=== PATIENT | female | born 1970 | race African-American/Black ===

== ENCOUNTER 2020-05-03 16:07 | Emergency (ER) | payer MEDICAID, OTHER ==
[~2020-05-03] VITALS: Ht 172.7 cm; Wt 100.0 kg
[~2020-05-03 16:07] MED LIST: PRILOSEC; TRAM50TA3
[2020-05-03] MEDS ORDERED: TETANUS, DIPHTHERIA, PERTUSSIS VAC/PF 0.5ML (>7YR OLD) IM ONE (17:15)
[2020-05-03] MEDS ORDERED: CEPH500C2 MT (17:20)
[2020-05-03] MEDS ORDERED: CEPHALEXIN 250MG CAPSULE PO ONE (17:30)
[2020-05-03 18:19] VITALS: BP 142/87
== END 2020-05-03 18:24 | disposition home or self-care (01) ==
LOC: ER 16:07
DX: M70.22 Olecranon bursitis, left elbow (principal); I10 Essential (primary) hypertension; Z88.6 Allergy status to analgesic agent; Z88.8 Allergy status to other drugs, medicaments and biological substances; Z90.49 Acquired absence of other specified parts of digestive tract; Z98.890 Other specified postprocedural states
CPT/HCPCS: 90471; 90715; 99283; A4565

== ENCOUNTER 2022-05-11 18:54 | Emergency (ER) | payer MEDICAID ==
[~2022-05-11] VITALS: Ht 172.7 cm; Wt 106.0 kg
[~2022-05-11 18:54] MED LIST changes: +CEPH500C2 MT
[2022-05-11 19:12] VITALS: BP 160/70
== END 2022-05-12 02:29 | disposition left against medical advice (07) ==
LOC: ER 18:54
DX: R10.9 Unspecified abdominal pain (principal); Z53.21 Procedure and treatment not carried out due to patient leaving prior to being seen by health care provider
CPT/HCPCS: 99281

== ENCOUNTER 2022-09-25 15:41 | Emergency (ER) | payer MEDICAID ==
[~2022-09-25] VITALS: Ht 172.7 cm; Wt 117.2 kg
[2022-09-25 16:03] VITALS: O2SAT 99
[2022-09-25] MEDS ORDERED: ONDANSETRON 4MG ODT PO STA (17:26)
[2022-09-25] MEDS ORDERED: MAGNESIUM/ALUMINUM HYDROXIDE/SIMETHICONE 30ML UDC PO STA (17:26)
[2022-09-25] MEDS ORDERED: DICYCLOMINE HCL 10MG CAPSULE PO ONE (17:30)
[2022-09-25] MEDS ORDERED: POLYETHYLENE GLYCOL 3350 (17GM) 1 DOSE PACK PO ONE (17:30)
[2022-09-25 17:53] LABS: BASOPHILS % 0.7 % (0.0-2.0); DIFFERENTIAL COMMENT 0; HEMATOCRIT. 36.7 % (36.0-48.0); HEMOGLOBIN. 12.1 g/dL (12.0-16.0); LYMPHOCYTES % 23.5 % (20.0-50.0); MEAN CORPUSCULAR HEMOGLOBIN 30.2 pg (28.0-32.0); MEAN CORPUSCULAR HGB CONC 32.9 g/dL (31.0-37.0); MEAN CORPUSCULAR VOLUME 91.8 fL (81.0-99.0); MEAN PLATELET VOLUME 10.1 fl (7.4-10.4); NEUTROPHILS % 65.8 % (40.0-76.0); PLATELET 203 x1000/uL (130-400); RED CELL DISTRIBUTION WIDTH 13.3 % (11.6-14.6); WHITE BLOOD COUNT 8.1 x1000/uL (4.5-11.0)
[2022-09-25 18:04] LABS: CHLORIDE 107 mEq/L (98-107); INDEX HEMOLYSI 1 (1-3); INDEX ICTERIC 1 (1-4); INDEX LIPEMIC 1 (1-3); POTASSIUM 3.7 mEq/L (3.5-5.1); SODIUM 136 mEq/L (136-145)
[2022-09-25 18:09] LABS: HCG SCREEN NEGATIVE
[2022-09-25 18:11] LABS: ALANINE AMINOTRANSFERASE 18 IU/L (13-61); ALBUMIN 3.3 g/dL (3.4-5.0); ASPARTATE AMINOTRANSFERASE 10 IU/L (15-37); CALCIUM 8.7 mg/dL (8.5-10.1); CARBON DIOXIDE 26 mEq/L (21-32); CREATININE 0.6 mg/dL (0.6-1.3); GLUCOSE 97 mg/dL (70-105); UREA NITROGEN BLOOD 11 mg/dL (7-21)
[2022-09-25 18:13] LABS: BILIRUBIN TOTAL 0.4 mg/dL (0.1-1.0); PROTEIN TOTAL 6.9 g/dL (6.0-8.3)
[2022-09-25] MEDS ORDERED: DOCU-138 MT (18:28)
[2022-09-25] MEDS ORDERED: SENN-257 MT (18:28)
[2022-09-25] MEDS ORDERED: POLY17PO3 MT (18:28)
[2022-09-25 18:54] VITALS: BP 160/81; PULSE 85; RESP 18; TEMP 98.8
== END 2022-09-25 19:00 | disposition home or self-care (01) ==
LOC: ER 15:41
DX: K59.00 Constipation, unspecified (principal); I10 Essential (primary) hypertension; Z90.49 Acquired absence of other specified parts of digestive tract; F12.10 Cannabis abuse, uncomplicated
CPT/HCPCS: 80053; 84703; 83690; 85025; 36415; 99284; Q0162; Z7610